=== PATIENT | male | born 1955 | race Caucasian/White ===

== ENCOUNTER 2018-09-05 20:50 | Inpatient (IN) | payer MEDICARE, OTHER ==
--- NOTE | 2018-09-05 21:06 | ED Physician Chart ---
ED Chief Complaint/HPI - Patient Information Date Seen:: 09/05/18 Time Seen:: 20:45 Chief Complaint:: Agitation History of Present Illness:: onset x 2 days of agitation and confusion; no report of trauma SIs, LOC, H/As, S /T, neck pain, cough, C/P, SOB, Abd. Pain, A/N/V/D/C, fever, chills, or urinary s/s Allergies:: Allergies Allergy/AdvReac Type Severity Reaction Status Date / Time No Known Allergies Allergy Verified 09/05/18 20:54 Vitals:: Vital Signs - 8 hr 09/05/18 20:55 Temp 97.1 F HR 85 RR 16 BP 147/89 O2 Sat % 96 Historian:: Patient, EMS Review:: Nurse's Note Reviewed, Old Chart Reviewed, EMS run form Reviewed ED Review of Systems - Review of Systems General/Constitutional: No fever, No chills, No weight loss, No weakness, No diaphoresis, No edema, No loss of appetite Skin: No skin lesions, No rash, No bruising Head: No headache, No light-headedness Eyes: No loss of vision, No pain, No diplopia ENT: No earache, No nasal drainage, No sore throat, No tinnitus Neck: No neck pain, No swelling, No thyromegaly, No stiffness, No mass noted Cardio Vascular: No chest pain, No palpitations, No PND, No orthopnea, No edema Pulmonary: No SOB, No cough, No sputum, No wheezing GI: No nausea, No vomiting, No diarrhea, No pain, No melena, No hematochezia, No constipation, No hematemesis G/U: No dysuria, No frequency, No hematuria, No nacturia Musculoskeletal: No bone or joint pain, No back pain, No muscle pain Endocrine: No polyuria, No polydipsia Psychiatric: Prior psych history, Depression, Anxiety, No suicidal ideation, No homicidal ideation, No auditory hallucination, No visual hallucination Hematopoietic: No bruising, No lymphadenopathy Allergic/Immuno: No urticaria, No angioedema Neurological: No syncope, No focal symptoms, No weakness, No paresthesia, No headache, No seizure, No dizziness, Confusion, No vertigo ED Past Medical History - Past Medical History Obtainable: Yes Past Medical History: HTN, Dyslipidemia, Dementia Family History: HTN Social History: Non Smoker, No Alcohol, No Drug Use, Single, Care Facility Surgical History: None Psychiatricy History: Depression, Dementia Medication: Reviewed Family Medical History - Family Member Mother History Unknown: Yes ED Physical Exam - Physical Examination General/Constitutional: Awake, Well-developed, well-nourished, Alert, No distress, GCS 15, Non-toxic appearing, Ambulatory Head: Atraumatic Eyes: Lids, conjuctiva normal, PERRL, EOMI Skin: Nl inspection, No rash, No skin lesions, No ecchymosis, Well hydrated, No lymphadenopathy ENMT: External ears, nose nl, TM canals nl, Nasal exam nl, Lips, teeth, gums nl , Oropharynx nl, Tonsils nl Neck: Nontender, Full ROM w/o pain, No JVD, No nuchal rigidity, No bruit, No mass, No stridor Respiratory: Nl effort/Exclusion, Clear to Auscultation, No Wheeze/Rhonchi/Rales Cardio Vascular: RRR, No murmur, gallop, rubs, NL S1 S2, Carotid/Femoral/Distal pulses equal bilaterally GI: No tenderness/rebounding/guarding, No organomegaly, No hernia, Normal BS's, Nondistended, No mass/bruits, No McBurney tenderness : No CVA tenderness Extremities: No tenderness or effusion, Full ROM, normal strength in all extremities, No edema, Normal digits & nails Neuro/Psych: Alert/oriented, DTR's symmetric, Normal sensory exam, Normal motor strength, Judgement/insight normal, Mood normal, Normal gait, No focal deficits Other Neuro/Psych comments:: + Psychomotor Agitation; no SIs; Mood/Affect: Labile Misc: Normal back, No paraspinal tenderness ED Labs/Radiology/EKG Results - Lab Results Comments:: Reviewed - EKG Interpretations EKG Time:: 20:57 Rate & Rhythm: 79; NSR Comments:: non-specific st-t changes ED Septic Shock - . Is Septic Shock (SBP<90, OR Lactate>4 mmol\L) present?: No - <6hrs of presentation: Vital Signs: Vital Signs - 8 hr 09/05/18 20:55 Temp 97.1 F HR 85 RR 16 BP 147/89 O2 Sat % 96 ED Reassessment (Disposition) - Reassessment Reassessment Condition:: Improved - Diagnosis Diagnosis:: Agitation; Confusion; AMS; Medical Clearance; HTN; Dementia; Bipolar Disorder - Aftercare/Follow up Instructions Aftercare/Follow-Up Instructions:: Counseled pt regarding lab results/diagnosis & need follow up, Counseled pt & family regarding lab results/diagnosis & need follow up - Patient Disposition Discharge/Transfer:: Acute Care w/in this hosp Admitted to:: [facility] Condition at Disposition:: Stable, Improved
[2018-09-05 21:15] LABS: % BASOPHILS 0.5 % (0.0-2.0); % EOSINOPHILS 0.6 % (0.0-5.0); % LYMPHOCYTES 38.6 % (20.0-50.0); % MONOCYTES 6.1 % (2.0-10.0); % NEUTROPHILS 54.2 % (40.0-80.0); BASOPHILE ABSOLUTE 0.1 Th/cumm (0-0.2); EOSINOPHILE ABSOLUTE 0.1 Th/cmm (0.1-0.4); HEMOGLOBIN 16.1 gm/dL (12-16); MEAN CELL VOLUME 98.9 fl (80-99); MEAN CORPUSCULAR HEMOGLOBIN 33.2 pg (26.0-30.0); MEAN CORPUSCULAR HGB CONC 33.6 pg (28.0-36.0); MEAN PLATELET VOLUME 8.5 fl; MONOCYTE ABSOLUTE 0.6 Th/cmm (0.3-1.0); NEUTROPHILE ABSOLUTE 5.5 Th/cmm (1.8-8.0); PLATELET COUNT 162 Th/cmm (150-400); RED BLOOD COUNT 4.85 Mil/cmm (4.30-5.70); RED CELL DISTRIBUTION WIDTH 12.1 % (11.5-20.0); WHITE BLOOD COUNT 10.3 Th/cmm (4.8-10.8)
[2018-09-05 21:31] LABS: ALB/GLOB RATIO 1.6 (1.0-1.8); ALKALINE PHOSPHATASE 68 U/L (34-104); ANION GAP 11.5 (7.0-16.0); BILIRUBIN,TOTAL 0.5 mg/dL (0.3-1.0); BUN - UREA NITROGEN 17 mg/dL (7-25); CALCIUM SERUM 9.9 mg/dL (8.6-10.3); CARBON DIOXIDE 27.6 mEq/L (21.0-31.0); CHLORIDE 108 mEq/L (98-107); CREATININE - SERUM 0.8 mg/dL (0.7-1.3); GFR AFRICAN-AMERICAN > 60.0 ml/min (>90); GFR NON AFRICAN-AMERICAN > 60.0 ml/min; GLUCOSE 91 mg/dL (70-105); POTASSIUM SERUM 4.1 mEq/L (3.5-5.1); SALICYLATES (ASPIRIN) < 25.0 mg/L (30.0-100.0); SGOT 13 U/L (13-39); SGPT/ALT 12 U/L (7-52); SODIUM SERUM 143 mEq/L (136-145); TOTAL PROTEIN,SERUM 6.5 gm/dL (6.0-8.3)
[2018-09-05 22:17] LABS: ACETAMINOPHEN < 10.0 ug/mL (10.0-30.0)
[2018-09-05 22:38] VITALS: BP 133/92
[2018-09-05] MEDS ORDERED: DIPHENHYDRAMINE HCL 50 MG PO PRN (23:13)
[2018-09-05] MEDS ORDERED: Non-Formulary Item 1 EA (Albuterol Sulfate [Proair Respiclick] 2 PUFF) IH PRN (23:13)
[2018-09-06 01:06] LABS: CHOLESTEROL 128 mg/dL (<200); HDL -HIGH DENSITY LIPOPROTEIN 38 mg/dL (23-92); TRIGLYCERIDES 104 mg/dL (<150)
[2018-09-06] MEDS: Levothyroxine 0.05 Mg Tab PO SCH (06:41)
[2018-09-06] MEDS ORDERED: Albuterol Nebulizer 2.5mg/3mL HHN PRN (08:33)
[2018-09-06] MEDS: Aspirin 81mg Chewable Tab PO SCH (08:51)
[2018-09-06] MEDS: Benztropine 1 MG TAB PO SCH ×2 (08:51→17:17)
[2018-09-06] MEDS ORDERED: PRAVASTATIN SODIUM 10 MG PO SCH (09:00)
--- NOTE | 2018-09-06 21:02 | History & Physical ---
ADMIT DATE: 09/06/2018 COVERING FOR: Dr. Marks. CHIEF COMPLAINT: Agitation. HISTORY OF PRESENT ILLNESS: A 63-year-old male, who is a retirement resident, admitted to the Geropsych Unit due to a 3-day history of agitation and confusion. PAST MEDICAL HISTORY: Hypertension, dyslipidemia, dementia. SOCIAL HISTORY: The patient is a retirement resident, requiring 24-hour nursing care. SURGICAL HISTORY: None. ALLERGIES: No drug allergies. HOME MEDICATIONS: Please see medication list. REVIEW OF SYSTEMS: All systems reviewed and negative. PHYSICAL EXAMINATION: GENERAL: The patient is well developed, well nourished, no apparent distress. VITAL SIGNS: Temperature 98.7, heart rate 86, blood pressure 109/56, respirations 18, O2 95%. HEENT: Head is normocephalic, atraumatic. NECK: Supple. No mass. LUNGS: Clear bilaterally. HEART: Regular rhythm. ABDOMEN: Soft, nontender. ASSESSMENT: Agitation, hypertension, dyslipidemia, and dementia. PLAN: Fall precautions will be initiated. Monitor blood pressure closely. Continue retirement medications. We will continue to monitor this patient. JOB# [id number]
--- NOTE | 2018-09-06 21:09 | Psychiatric Evaluation ---
DATE OF SERVICE: 09/05/2018 HISTORY OF PRESENT ILLNESS: Staff was spoken to. The patient is interviewed. This is a 63-year-old male, resident of a [facility]. Information obtained by directly interviewing the patient as well as reviewing the admission papers. The patient has been brought here from the [facility] for his acute agitation and psychosis. The patient is admitted on a voluntary basis. Staff was spoken to. The patient is interviewed. Chart is reviewed. During the evaluation, the patient is reported to have been having a poor personal hygiene and body odor. The patient is reported to have not been compliant with the medication and the patient has been diagnosed to have schizophrenia, rule out schizoaffective disorder for almost over 10-20 years and he is stating that he has been in several different hospitals. At the time of the hospitalization, the patient's chart indicated that the patient is on 10 mg twice a day of the Haldol and also reported to have gotten Invega Trinza and the patient is also on Paxil. The patient during the evaluation is talking to self, not able to give a coherent information. The patient is also reported to have hypothyroidism, hypertension, diabetes mellitus, and hyperlipidemia. The patient is not presenting with any allergies to any medications. PAST PSYCHIATRIC HISTORY: Please refer to the above. MEDICAL HISTORY: Physical examination is requested to be done by Dr. Marks. SUBSTANCE ABUSE HISTORY: None. PHYSICAL OR SEXUAL ABUSE HISTORY: None. LEGAL PROBLEMS: None at this time. STRENGTH AND ASSETS: The patient is motivated. MENTAL STATUS EXAMINATION: The patient is a 63-year-old, looking older than his stated age, superficially cooperative. Eye contact is poor. Mood is noted to be irritable. Affect is constricted. Insight and judgment are noted to be still impaired. Impulse control is noted to be poor. Coping skills are also noted to be very poor. The patient is not able to contract for safety at this time. The patient is actively responding to internal stimuli. The patient at this time is not able to provide much of decent information. The patient is alert and aware that he is in the hospital. Attention span and concentration are noted to be very poor. Short and long-term memory seem to be fair. DIAGNOSTIC IMPRESSION: AXIS I: Schizophrenia, chronic paranoid type; rule out schizoaffective disorder. AXIS II: None. AXIS III: Hypertension, diabetes mellitus, hyperlipidemia and hypothyroidism. IMMEDIATE TREATMENT PLAN: The patient is going to be continued on the Haldol and the patient is going to be closely monitored. Once stabilized, the patient is going to be discharged to [facility] to be followed up on an outpatient basis. JOB# [id number]
[2018-09-07] MEDS: Levothyroxine 0.05 Mg Tab PO SCH (06:38)
[2018-09-07] MEDS: Benztropine 1 MG TAB PO SCH ×2 (09:19→18:15)
[2018-09-07] MEDS: Aspirin 81mg Chewable Tab PO SCH (09:19)
--- NOTE | 2018-09-07 11:46 | Progress Notes ---
DATE: 09/07/2018 PSYCHIATRIC PROGRESS NOTE PROGRESS ON THE UNIT: Staff was spoken to. The patient is interviewed. Mood is noted to be irritable. Affect is constricted. Insight and judgment noted to be still impaired. Impulse control is noted to be limited. The patient has been having difficult time to cope with the stress. Personal hygiene is noted to be very poor. The patient has taken with a great difficulty a shower but he is refusing to change the clothes. ASSESSMENT: The patient is still psychotic and is responding to internal stimuli. PLAN: To continue the patient with supportive therapy and followup. JOB# [id number]
--- NOTE | 2018-09-07 17:02 | Internal Medicine Prog Note ---
Internal Medicine Subjective - Subjective Patient seen and examined:: chart reviewed Patient is:: awake, agitated, confused Patient Complaints of:: congestion Per staff patient has:: no adverse event Internal Medicine Objective - Results Result Diagrams: 09/05/18 21:00 09/05/18 21:00 Recent Labs: Laboratory Last Values WBC 10.3 Th/cmm (4.8-10.8) 09/05/18 21:00 RBC 4.85 Mil/cmm (4.30-5.70) 09/05/18 21:00 Hgb 16.1 gm/dL (12-16) 09/05/18 21:00 Hct 48.0 % (41.0-60) 09/05/18 21:00 MCV 98.9 fl (80-99) 09/05/18 21:00 MCH 33.2 pg (26.0-30.0) H 09/05/18 21:00 MCHC Differential 33.6 pg (28.0-36.0) 09/05/18 21:00 RDW 12.1 % (11.5-20.0) 09/05/18 21:00 Plt Count 162 Th/cmm (150-400) 09/05/18 21:00 MPV 8.5 fl 09/05/18 21:00 Neutrophils % 54.2 % (40.0-80.0) 09/05/18 21:00 Lymphocytes % 38.6 % (20.0-50.0) 09/05/18 21:00 Monocytes % 6.1 % (2.0-10.0) 09/05/18 21:00 Eosinophils % 0.6 % (0.0-5.0) 09/05/18 21:00 Basophils % 0.5 % (0.0-2.0) 09/05/18 21:00 Sodium 143 mEq/L (136-145) 09/05/18 21:00 Potassium 4.1 mEq/L (3.5-5.1) 09/05/18 21:00 Chloride 108 mEq/L (98-107) H 09/05/18 21:00 Carbon Dioxide 27.6 mEq/L (21.0-31.0) 09/05/18 21:00 Anion Gap 11.5 (7.0-16.0) 09/05/18 21:00 BUN 17 mg/dL (7-25) 09/05/18 21:00 Creatinine 0.8 mg/dL (0.7-1.3) 09/05/18 21:00 Est GFR ( Amer) > 60.0 ml/min (>90) 09/05/18 21:00 Est GFR (Non-Af Amer) > 60.0 ml/min 09/05/18 21:00 BUN/Creatinine Ratio 21.3 09/05/18 21:00 Glucose 91 mg/dL (70-105) 09/05/18 21:00 Calcium 9.9 mg/dL (8.6-10.3) 09/05/18 21:00 Total Bilirubin 0.5 mg/dL (0.3-1.0) 09/05/18 21:00 AST 13 U/L (13-39) 09/05/18 21:00 ALT 12 U/L (7-52) 09/05/18 21:00 Alkaline Phosphatase 68 U/L (34-104) 09/05/18 21:00 Troponin I < 0.01 ng/mL (0.01-0.05) L 09/05/18 21:00 Total Protein 6.5 gm/dL (6.0-8.3) 09/05/18 21:00 Albumin 4.0 gm/dL (4.2-5.5) L 09/05/18 21:00 Globulin 2.5 gm/dL 09/05/18 21:00 Albumin/Globulin Ratio 1.6 (1.0-1.8) 09/05/18 21:00 Triglycerides 104 mg/dL (<150) 09/05/18 21:00 Cholesterol 128 mg/dL (<200) 09/05/18 21:00 LDL Cholesterol Direct 84 mg/dL (75-193) 09/05/18 21:00 HDL Cholesterol 38 mg/dL (23-92) 09/05/18 21:00 TSH 4.80 uIU/ml (0.34-5.60) 09/05/18 21:00 Salicylates < 25.0 mg/L (30.0-100.0) L 09/05/18 21:00 Acetaminophen < 10.0 ug/mL (10.0-30.0) L 09/05/18 21:00 Ethyl Alcohol < 10 mg/dL (0-10) 09/05/18 21:00 RPR NONREACTIVE (NONREACTIVE) 09/05/18 21:00 - Physical Exam Vitals and I&O: Vital Signs Temp 98.2 F 09/07/18 14:45 Pulse 104 09/07/18 14:45 Resp 20 09/07/18 14:45 BP 124/77 09/07/18 14:45 Pulse Ox 96 09/07/18 14:45 Active Medications: Current Medications Acetaminophen (Tylenol) 650 mg PO Q4HR PRN PRN Reason: Mild Pain / Temp above 100 Stop: 11/04/18 22:37 Albuterol Sulfate (Albuterol 2.5mg/3ml Neb Ud) 2.5 mg HHN Q6H PRN PRN Reason: Shortness of Breath Stop: 11/05/18 08:32 Aspirin (Aspirin Chewable) 81 mg PO DAILY [facility] Stop: 11/05/18 08:59 Last Admin: 09/07/18 09:19 Dose: 81 mg Benztropine Mesylate (Cogentin) 1 mg PO BID [facility] Stop: 11/05/18 08:59 Last Admin: 09/07/18 09:19 Dose: 1 mg Diphenhydramine HCl (Benadryl) 50 mg PO HS PRN PRN Reason: SLEEP Stop: 11/05/18 08:33 Divalproex Sodium (Depakote Dr) 500 mg PO DAILY [facility]; Protocol Stop: 11/05/18 08:59 Last Admin: 09/07/18 09:18 Dose: 500 mg Haloperidol (Haldol) 5 mg PO BID [facility]; Protocol Stop: 11/05/18 16:59 Last Admin: 09/07/18 09:19 Dose: 5 mg Levothyroxine Sodium (Synthroid) 0.05 mg PO QDAC NEL Stop: 11/05/18 07:29 Last Admin: 09/07/18 06:38 Dose: 0.05 mg Lisinopril (Zestril) 5 mg PO DAILY NEL Stop: 11/05/18 08:59 Last Admin: 09/07/18 09:19 Dose: 5 mg Lorazepam (Ativan) 0.5 mg PO Q4HR PRN; Protocol PRN Reason: Anxiety Stop: 10/05/18 22:37 Metformin HCl (Glucophage) 500 mg PO BID [facility] Stop: 11/05/18 08:59 Last Admin: 09/07/18 09:19 Dose: 500 mg Simvastatin (Zocor) 10 mg PO HS NEL Stop: 11/05/18 20:59 Last Admin: 09/06/18 21:45 Dose: 10 mg Zolpidem Tartrate (Ambien) 5 mg PO HS PRN PRN Reason: Insomnia Stop: 11/04/18 22:37 General: demented HEENT: NC/AT Neck: Supple, No JVD Lungs: CTAB Cardiovascular: RRR, Normal S1, Normal S2 Abdomen: soft Extremities: clear Neurological: no change Internal Medicine Assmt/Plan - Assessment Assessment: agitation htn dyslipidemia dementia - Plan Plan: as per psych will monitor
[2018-09-08] MEDS: Levothyroxine 0.05 Mg Tab PO SCH (06:31)
[2018-09-08] MEDS: Aspirin 81mg Chewable Tab PO SCH (08:36)
[2018-09-08] MEDS: Benztropine 1 MG TAB PO SCH ×2 (08:36→17:00)
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
--- NOTE | 2018-09-08 18:37 | Progress Notes ---
DATE: 09/08/2018 SUBJECTIVE: The patient was seen in dining area. The patient appears to be guarded, easily gets frustrated and irritable with episodes of behavioral outbursts. Otherwise, the patient appears to be in no acute distress. OBJECTIVE: VITAL SIGNS: Temperature 97.3, heart rate 72, blood pressure 109/64, heart rate 18, and 93% on room air. HEENT: Head is atraumatic and normocephalic. Eyes: Bilateral conjunctivae are clear. Bilateral pupils are equally round and reactive. NECK: Supple. No JVD. CARDIOVASCULAR: S1 and S2 without murmur. PULMONARY: Clear to auscultation. GASTROINTESTINAL: Soft and nontender without guarding. Positive bowel sounds. MUSCULOSKELETAL: No clubbing. No cyanosis noted. ASSESSMENT: 1. Paranoid schizophrenia. 2. Dementia. 3. Hypertension. 4. Hyperlipidemia. PLAN: We will keep the patient in inpatient psychiatric unit. We will follow up with a psychiatrist to monitor the patient's condition and behavior. Treatment plans were discussed with the patient's nurse. Treatment plans discussed with Dr. Marks. JOB# [id number]
--- NOTE | 2018-09-09 01:45 | Progress Notes ---
DATE: 09/08/2018 PSYCHIATRIC PROGRESS NOTE SUBJECTIVE: Staff was spoken to. The patient is interviewed. Mood is noted to be dysphoric. He continues to be very paranoid, isolative, and withdrawn. Personal hygiene continues to be extremely poor. The patient is reluctant to change his clothes. The patient is still responding to internal stimuli and so far the patient has been able to tolerate the medication. The patient is currently on 5 mg twice a day haloperidol and Depakote 500 mg daily and has been able to tolerate the medication. ASSESSMENT: The patient is still psychotic. PLAN: To continue the patient with the current medications and followup. JOB# [id number]
[2018-09-09] MEDS: Levothyroxine 0.05 Mg Tab PO SCH (06:42)
[2018-09-09] MEDS: Aspirin 81mg Chewable Tab PO SCH (08:28)
[2018-09-09] MEDS: Benztropine 1 MG TAB PO SCH ×2 (08:28→16:18)
--- NOTE | 2018-09-09 13:02 | Internal Medicine Prog Note ---
Internal Medicine Subjective - Subjective Patient is:: awake, agitated, confused, other (still psychotic) Patient Complaints of:: congestion Per staff patient has:: no adverse event Internal Medicine Objective - Results Result Diagrams: 09/05/18 21:00 09/05/18 21:00 Recent Labs: Laboratory Last Values WBC 10.3 Th/cmm (4.8-10.8) 09/05/18 21:00 RBC 4.85 Mil/cmm (4.30-5.70) 09/05/18 21:00 Hgb 16.1 gm/dL (12-16) 09/05/18 21:00 Hct 48.0 % (41.0-60) 09/05/18 21:00 MCV 98.9 fl (80-99) 09/05/18 21:00 MCH 33.2 pg (26.0-30.0) H 09/05/18 21:00 MCHC Differential 33.6 pg (28.0-36.0) 09/05/18 21:00 RDW 12.1 % (11.5-20.0) 09/05/18 21:00 Plt Count 162 Th/cmm (150-400) 09/05/18 21:00 MPV 8.5 fl 09/05/18 21:00 Neutrophils % 54.2 % (40.0-80.0) 09/05/18 21:00 Lymphocytes % 38.6 % (20.0-50.0) 09/05/18 21:00 Monocytes % 6.1 % (2.0-10.0) 09/05/18 21:00 Eosinophils % 0.6 % (0.0-5.0) 09/05/18 21:00 Basophils % 0.5 % (0.0-2.0) 09/05/18 21:00 Sodium 143 mEq/L (136-145) 09/05/18 21:00 Potassium 4.1 mEq/L (3.5-5.1) 09/05/18 21:00 Chloride 108 mEq/L (98-107) H 09/05/18 21:00 Carbon Dioxide 27.6 mEq/L (21.0-31.0) 09/05/18 21:00 Anion Gap 11.5 (7.0-16.0) 09/05/18 21:00 BUN 17 mg/dL (7-25) 09/05/18 21:00 Creatinine 0.8 mg/dL (0.7-1.3) 09/05/18 21:00 Est GFR ( Amer) > 60.0 ml/min (>90) 09/05/18 21:00 Est GFR (Non-Af Amer) > 60.0 ml/min 09/05/18 21:00 BUN/Creatinine Ratio 21.3 09/05/18 21:00 Glucose 91 mg/dL (70-105) 09/05/18 21:00 Calcium 9.9 mg/dL (8.6-10.3) 09/05/18 21:00 Total Bilirubin 0.5 mg/dL (0.3-1.0) 09/05/18 21:00 AST 13 U/L (13-39) 09/05/18 21:00 ALT 12 U/L (7-52) 09/05/18 21:00 Alkaline Phosphatase 68 U/L (34-104) 09/05/18 21:00 Troponin I < 0.01 ng/mL (0.01-0.05) L 09/05/18 21:00 Total Protein 6.5 gm/dL (6.0-8.3) 09/05/18 21:00 Albumin 4.0 gm/dL (4.2-5.5) L 09/05/18 21:00 Globulin 2.5 gm/dL 09/05/18 21:00 Albumin/Globulin Ratio 1.6 (1.0-1.8) 09/05/18 21:00 Triglycerides 104 mg/dL (<150) 09/05/18 21:00 Cholesterol 128 mg/dL (<200) 09/05/18 21:00 LDL Cholesterol Direct 84 mg/dL (75-193) 09/05/18 21:00 HDL Cholesterol 38 mg/dL (23-92) 09/05/18 21:00 TSH 4.80 uIU/ml (0.34-5.60) 09/05/18 21:00 Salicylates < 25.0 mg/L (30.0-100.0) L 09/05/18 21:00 Acetaminophen < 10.0 ug/mL (10.0-30.0) L 09/05/18 21:00 Ethyl Alcohol < 10 mg/dL (0-10) 09/05/18 21:00 RPR NONREACTIVE (NONREACTIVE) 09/05/18 21:00 - Physical Exam Vitals and I&O: Vital Signs Temp 97.9 F 09/09/18 05:10 Pulse 80 09/09/18 08:29 Resp 18 09/09/18 05:10 BP 110/79 09/09/18 08:29 Pulse Ox 97 09/09/18 05:10 Intake & Output 09/08/18 09/09/18 09/09/18 18:59 06:59 18:59 Intake Total 480 Balance 480 Intake: Oral 480 Other: # Voids 2 Active Medications: Current Medications Acetaminophen (Tylenol) 650 mg PO Q4HR PRN PRN Reason: Mild Pain / Temp above 100 Stop: 11/04/18 22:37 Albuterol Sulfate (Albuterol 2.5mg/3ml Neb Ud) 2.5 mg HHN Q6H PRN PRN Reason: Shortness of Breath Stop: 11/05/18 08:32 Aspirin (Aspirin Chewable) 81 mg PO DAILY [facility] Stop: 11/05/18 08:59 Last Admin: 09/09/18 08:28 Dose: 81 mg Benztropine Mesylate (Cogentin) 1 mg PO BID NEL Stop: 11/05/18 08:59 Last Admin: 09/09/18 08:28 Dose: 1 mg Diphenhydramine HCl (Benadryl) 50 mg PO HS PRN PRN Reason: SLEEP Stop: 11/05/18 08:33 Divalproex Sodium (Depakote Dr) 500 mg PO DAILY NEL; Protocol Stop: 11/05/18 08:59 Last Admin: 09/09/18 08:29 Dose: 500 mg Haloperidol (Haldol) 5 mg PO BID NEL; Protocol Stop: 11/05/18 16:59 Last Admin: 09/09/18 08:28 Dose: 5 mg Levothyroxine Sodium (Synthroid) 0.05 mg PO QDAC NEL Stop: 11/05/18 07:29 Last Admin: 09/09/18 06:42 Dose: 0.05 mg Lisinopril (Zestril) 5 mg PO DAILY NEL Stop: 11/05/18 08:59 Last Admin: 09/09/18 08:29 Dose: 5 mg Lorazepam (Ativan) 0.5 mg PO Q4HR PRN; Protocol PRN Reason: Anxiety Stop: 10/05/18 22:37 Last Admin: 09/08/18 20:54 Dose: 0.5 mg Metformin HCl (Glucophage) 500 mg PO BID NEL Stop: 11/05/18 08:59 Last Admin: 09/09/18 08:28 Dose: 500 mg Simvastatin (Zocor) 10 mg PO HS NEL Stop: 11/05/18 20:59 Last Admin: 09/08/18 20:54 Dose: 10 mg Zolpidem Tartrate (Ambien) 5 mg PO HS PRN PRN Reason: Insomnia Stop: 11/04/18 22:37 General: demented HEENT: NC/AT Neck: Supple, No JVD Lungs: CTAB Cardiovascular: RRR, Normal S1, Normal S2 Abdomen: soft Extremities: clear Neurological: no change Internal Medicine Assmt/Plan - Assessment Assessment: agitation htn dyslipidemia dementia - Plan Plan: as per psych will monitor Nutritional Asmnt/Malnutr-PDOC - Dietary Evaluation Malnutrition Findings (Please click <Entered> for more info): Nutritional Asmnt/Malnutrition Start: 09/08/18 10: 04 Text: Status: Complete Freq: Protocol: Document 09/08/18 10:04 QING (Rec: 09/08/18 10:15 QING HAY- [email or web address]) Nutritional Asmnt/Malnutrition Patient General Information Nutritional Screening Moderate Risk Diagnosis Psychosis Pertinent Medical Hx/Surgical Hx HTN, dyslipidemia, dementia Subjective Information Patient was admitted from a care home. Patient in bed at time of visit. Per nursing, patient is tolerating diet eating 75-100% of meals. Current Diet Order/ Nutrition Support 60 gm [facility] Patient / S.O Not Indicated Pertinent Medications synthroid, Metformin Pertinent Labs WNL Nutritional Hx/Data Height 1.83 m Height (Calculated Centimeters) 182.9 Current Weight (lbs) 75.296 kg Weight (Calculated Kilograms) 75.3 Weight (Calculated Grams) 45974.3 [place] Body Weight 178 % [place] Body Weight 93 Body Mass Index (BMI) 22.5 Recent Weight Change No Weight Status Approriate GI Symptoms GI Symptoms None Last BM none noted in EMR since admission Difficult in: None Food Allergies No Cultural/Ethnic/Sikh Belief none indicated Usual diet at home unknown Skin Integrity/Comment: Alen 21, intact Current %PO Fair (50-74%) Estimated Nutritional Goals BEE in Kcals: Using Current wt Calories/Kcals/Kg 25-30 kcal/kg using 75.4 kg Kcals Calculated 4586-4193 kcal/day Protein: Using Current wt Protein g/k.8-1 gm/kg Protein Calculated ~60-75 gm/day Fluid: ml 4084-8944 ml/day Nutritional Problem 1. Problem Problem No nutrition diagnosis at this time Intervention/Recommendation Comments Continue 60 gm CCHO diet as tolerated by patient. Expected Outcomes/Goals Expected Outcomes/Goals Oral intake >75% of meals, weight stable, nutrition related labs WNL
--- NOTE | 2018-09-09 21:17 | Progress Notes ---
DATE: 09/09/2018 PSYCHIATRIC PROGRESS NOTE SUBJECTIVE: Staff was spoken to. The patient is interviewed. Mood is noted to be irritable. Affect is constricted. The patient's insight and judgment at this time are still impaired. Impulse control is noted to be limited. The patient is currently on the valproic acid and haloperidol, has been able to tolerate the medications. No side effects to the medications are noted. The patient is denying any command hallucinations, but the patient has paranoia. The patient's blood work has been reviewed and no major interventions were needed. ASSESSMENT: The patient is still psychotic. PLAN: To continue the patient with supportive therapy and followup. JOB# [id number]
[2018-09-10] MEDS: Levothyroxine 0.05 Mg Tab PO SCH (06:37)
[2018-09-10] MEDS: Benztropine 1 MG TAB PO SCH ×2 (08:23→16:22)
[2018-09-10] MEDS: Aspirin 81mg Chewable Tab PO SCH (08:24)
--- NOTE | 2018-09-10 15:22 | Internal Medicine Prog Note ---
Internal Medicine Subjective - Subjective Service Date: 09/10/18 Patient is:: awake, verbal, interactive, talking, agitated, confused, other ( still psychotic, very paranoid and denies hallucinations, affect is constricted ) Patient Complaints of:: congestion Per staff patient has:: no adverse event, combative, confused, tolerating meds Internal Medicine Objective - Results Result Diagrams: 09/05/18 21:00 09/05/18 21:00 Recent Labs: Laboratory Last Values WBC 10.3 Th/cmm (4.8-10.8) 09/05/18 21:00 RBC 4.85 Mil/cmm (4.30-5.70) 09/05/18 21:00 Hgb 16.1 gm/dL (12-16) 09/05/18 21:00 Hct 48.0 % (41.0-60) 09/05/18 21:00 MCV 98.9 fl (80-99) 09/05/18 21:00 MCH 33.2 pg (26.0-30.0) H 09/05/18 21:00 MCHC Differential 33.6 pg (28.0-36.0) 09/05/18 21:00 RDW 12.1 % (11.5-20.0) 09/05/18 21:00 Plt Count 162 Th/cmm (150-400) 09/05/18 21:00 MPV 8.5 fl 09/05/18 21:00 Neutrophils % 54.2 % (40.0-80.0) 09/05/18 21:00 Lymphocytes % 38.6 % (20.0-50.0) 09/05/18 21:00 Monocytes % 6.1 % (2.0-10.0) 09/05/18 21:00 Eosinophils % 0.6 % (0.0-5.0) 09/05/18 21:00 Basophils % 0.5 % (0.0-2.0) 09/05/18 21:00 Sodium 143 mEq/L (136-145) 09/05/18 21:00 Potassium 4.1 mEq/L (3.5-5.1) 09/05/18 21:00 Chloride 108 mEq/L (98-107) H 09/05/18 21:00 Carbon Dioxide 27.6 mEq/L (21.0-31.0) 09/05/18 21:00 Anion Gap 11.5 (7.0-16.0) 09/05/18 21:00 BUN 17 mg/dL (7-25) 09/05/18 21:00 Creatinine 0.8 mg/dL (0.7-1.3) 09/05/18 21:00 Est GFR ( Amer) > 60.0 ml/min (>90) 09/05/18 21:00 Est GFR (Non-Af Amer) > 60.0 ml/min 09/05/18 21:00 BUN/Creatinine Ratio 21.3 09/05/18 21:00 Glucose 91 mg/dL (70-105) 09/05/18 21:00 Calcium 9.9 mg/dL (8.6-10.3) 09/05/18 21:00 Total Bilirubin 0.5 mg/dL (0.3-1.0) 09/05/18 21:00 AST 13 U/L (13-39) 09/05/18 21:00 ALT 12 U/L (7-52) 09/05/18 21:00 Alkaline Phosphatase 68 U/L (34-104) 09/05/18 21:00 Troponin I < 0.01 ng/mL (0.01-0.05) L 09/05/18 21:00 Total Protein 6.5 gm/dL (6.0-8.3) 09/05/18 21:00 Albumin 4.0 gm/dL (4.2-5.5) L 09/05/18 21:00 Globulin 2.5 gm/dL 09/05/18 21:00 Albumin/Globulin Ratio 1.6 (1.0-1.8) 09/05/18 21:00 Triglycerides 104 mg/dL (<150) 09/05/18 21:00 Cholesterol 128 mg/dL (<200) 09/05/18 21:00 LDL Cholesterol Direct 84 mg/dL (75-193) 09/05/18 21:00 HDL Cholesterol 38 mg/dL (23-92) 09/05/18 21:00 TSH 4.80 uIU/ml (0.34-5.60) 09/05/18 21:00 Salicylates < 25.0 mg/L (30.0-100.0) L 09/05/18 21:00 Acetaminophen < 10.0 ug/mL (10.0-30.0) L 09/05/18 21:00 Ethyl Alcohol < 10 mg/dL (0-10) 09/05/18 21:00 RPR NONREACTIVE (NONREACTIVE) 09/05/18 21:00 - Physical Exam Vitals and I&O: Vital Signs Temp 98.2 F 09/10/18 08:00 Pulse 85 09/10/18 08:24 Resp 20 09/10/18 08:00 BP 110/71 09/10/18 08:24 Pulse Ox 92 09/10/18 08:00 Intake & Output 09/09/18 09/10/18 09/10/18 18:59 06:59 18:59 Intake Total 480 Balance 480 Intake: Oral 480 Other: # Voids 2 # Bowel Movements 0 Active Medications: Current Medications Acetaminophen (Tylenol) 650 mg PO Q4HR PRN PRN Reason: Mild Pain / Temp above 100 Stop: 11/04/18 22:37 Albuterol Sulfate (Albuterol 2.5mg/3ml Neb Ud) 2.5 mg HHN Q6H PRN PRN Reason: Shortness of Breath Stop: 11/05/18 08:32 Aspirin (Aspirin Chewable) 81 mg PO DAILY [facility] Stop: 11/05/18 08:59 Last Admin: 09/10/18 08:24 Dose: 81 mg Benztropine Mesylate (Cogentin) 1 mg PO BID NEL Stop: 11/05/18 08:59 Last Admin: 09/10/18 08:23 Dose: 1 mg Diphenhydramine HCl (Benadryl) 50 mg PO HS PRN PRN Reason: SLEEP Stop: 11/05/18 08:33 Divalproex Sodium (Depakote Dr) 500 mg PO DAILY [facility]; Protocol Stop: 11/05/18 08:59 Last Admin: 09/10/18 08:24 Dose: 500 mg Haloperidol (Haldol) 5 mg PO BID NEL; Protocol Stop: 11/05/18 16:59 Last Admin: 09/10/18 08:24 Dose: 5 mg Levothyroxine Sodium (Synthroid) 0.05 mg PO QDAC NEL Stop: 11/05/18 07:29 Last Admin: 09/10/18 06:37 Dose: 0.05 mg Lisinopril (Zestril) 5 mg PO DAILY NEL Stop: 11/05/18 08:59 Last Admin: 09/10/18 08:24 Dose: 5 mg Lorazepam (Ativan) 0.5 mg PO Q4HR PRN; Protocol PRN Reason: Anxiety Stop: 10/05/18 22:37 Last Admin: 09/09/18 20:06 Dose: 0.5 mg Metformin HCl (Glucophage) 500 mg PO BID NEL Stop: 11/05/18 08:59 Last Admin: 09/10/18 08:23 Dose: 500 mg Simvastatin (Zocor) 10 mg PO HS NEL Stop: 11/05/18 20:59 Last Admin: 09/09/18 20:06 Dose: 10 mg Zolpidem Tartrate (Ambien) 5 mg PO HS PRN PRN Reason: Insomnia Stop: 11/04/18 22:37 Last Admin: 09/09/18 22:09 Dose: 5 mg General: demented HEENT: NC/AT Neck: Supple, No JVD Lungs: CTAB Cardiovascular: RRR, Normal S1, Normal S2 Abdomen: soft Extremities: clear Neurological: no change Internal Medicine Assmt/Plan - Assessment Assessment: psychotic/paranoia agitation htn dyslipidemia dementia - Plan Plan: as per psych will monitor closely continue supportive therapy and will follow up. Nutritional Asmnt/Malnutr-PDOC - Dietary Evaluation Malnutrition Findings (Please click <Entered> for more info): Nutritional Asmnt/Malnutrition Start: 09/08/18 10: 04 Text: Status: Complete Freq: Protocol: Document 09/08/18 10:04 QING (Rec: 09/08/18 10:15 QING HAY- [email or web address]) Nutritional Asmnt/Malnutrition Patient General Information Nutritional Screening Moderate Risk Diagnosis Psychosis Pertinent Medical Hx/Surgical Hx HTN, dyslipidemia, dementia Subjective Information Patient was admitted from a correction. Patient in bed at time of visit. Per nursing, patient is tolerating diet eating 75-100% of meals. Current Diet Order/ Nutrition Support 60 gm CCHO Patient / S.O Not Indicated Pertinent Medications synthroid, Metformin Pertinent Labs WNL Nutritional Hx/Data Height 1.83 m Height (Calculated Centimeters) 182.9 Current Weight (lbs) 75.296 kg Weight (Calculated Kilograms) 75.3 Weight (Calculated Grams) 36371.3 [place] Body Weight 178 % [place] Body Weight 93 Body Mass Index (BMI) 22.5 Recent Weight Change No Weight Status Approriate GI Symptoms GI Symptoms None Last BM none noted in EMR since admission Difficult in: None Food Allergies No Cultural/Ethnic/Episcopalian Belief none indicated Usual diet at home unknown Skin Integrity/Comment: Alen 21, intact Current %PO Fair (50-74%) Estimated Nutritional Goals BEE in Kcals: Using Current wt Calories/Kcals/Kg 25-30 kcal/kg using 75.4 kg Kcals Calculated 8561-9785 kcal/day Protein: Using Current wt Protein g/k.8-1 gm/kg Protein Calculated ~60-75 gm/day Fluid: ml 3136-8959 ml/day Nutritional Problem 1. Problem Problem No nutrition diagnosis at this time Intervention/Recommendation Comments Continue 60 gm CCHO diet as tolerated by patient. Expected Outcomes/Goals Expected Outcomes/Goals Oral intake >75% of meals, weight stable, nutrition related labs WNL
--- NOTE | 2018-09-10 23:22 | Progress Notes ---
DATE: 09/10/2018 PSYCHIATRIC PROGRESS NOTE SUBJECTIVE: Staff was spoken to. The patient is interviewed. Mood is noted to be irritable. Affect is constricted. He continues to be very paranoid. Coping skills are noted to be very poor. No side effects to the medications are noted. The patient has very limited participation in the group. The patient is currently on Depakote and the patient is also getting Haldol. No side effects to the medications are noted. ASSESSMENT: The patient is still psychotic. PLAN: To continue the patient with supportive therapy and follow up. JOB# [id number]
[2018-09-11] MEDS: Levothyroxine 0.05 Mg Tab PO SCH (06:37)
[2018-09-11] MEDS: Aspirin 81mg Chewable Tab PO SCH (08:26)
[2018-09-11] MEDS: Benztropine 1 MG TAB PO SCH ×2 (08:26→17:12)
--- NOTE | 2018-09-11 13:49 | Internal Medicine Prog Note ---
Internal Medicine Subjective - Subjective Service Date: 09/11/18 Patient is:: awake, verbal, interactive, talking, agitated, confused, other ( still psychotic, very paranoid and denies hallucinations, affect is constricted ) Patient Complaints of:: congestion Per staff patient has:: no adverse event, combative, confused, tolerating meds Internal Medicine Objective - Results Result Diagrams: 09/05/18 21:00 09/05/18 21:00 Recent Labs: Laboratory Last Values WBC 10.3 Th/cmm (4.8-10.8) 09/05/18 21:00 RBC 4.85 Mil/cmm (4.30-5.70) 09/05/18 21:00 Hgb 16.1 gm/dL (12-16) 09/05/18 21:00 Hct 48.0 % (41.0-60) 09/05/18 21:00 MCV 98.9 fl (80-99) 09/05/18 21:00 MCH 33.2 pg (26.0-30.0) H 09/05/18 21:00 MCHC Differential 33.6 pg (28.0-36.0) 09/05/18 21:00 RDW 12.1 % (11.5-20.0) 09/05/18 21:00 Plt Count 162 Th/cmm (150-400) 09/05/18 21:00 MPV 8.5 fl 09/05/18 21:00 Neutrophils % 54.2 % (40.0-80.0) 09/05/18 21:00 Lymphocytes % 38.6 % (20.0-50.0) 09/05/18 21:00 Monocytes % 6.1 % (2.0-10.0) 09/05/18 21:00 Eosinophils % 0.6 % (0.0-5.0) 09/05/18 21:00 Basophils % 0.5 % (0.0-2.0) 09/05/18 21:00 Sodium 143 mEq/L (136-145) 09/05/18 21:00 Potassium 4.1 mEq/L (3.5-5.1) 09/05/18 21:00 Chloride 108 mEq/L (98-107) H 09/05/18 21:00 Carbon Dioxide 27.6 mEq/L (21.0-31.0) 09/05/18 21:00 Anion Gap 11.5 (7.0-16.0) 09/05/18 21:00 BUN 17 mg/dL (7-25) 09/05/18 21:00 Creatinine 0.8 mg/dL (0.7-1.3) 09/05/18 21:00 Est GFR ( Amer) > 60.0 ml/min (>90) 09/05/18 21:00 Est GFR (Non-Af Amer) > 60.0 ml/min 09/05/18 21:00 BUN/Creatinine Ratio 21.3 09/05/18 21:00 Glucose 91 mg/dL (70-105) 09/05/18 21:00 Calcium 9.9 mg/dL (8.6-10.3) 09/05/18 21:00 Total Bilirubin 0.5 mg/dL (0.3-1.0) 09/05/18 21:00 AST 13 U/L (13-39) 09/05/18 21:00 ALT 12 U/L (7-52) 09/05/18 21:00 Alkaline Phosphatase 68 U/L (34-104) 09/05/18 21:00 Troponin I < 0.01 ng/mL (0.01-0.05) L 09/05/18 21:00 Total Protein 6.5 gm/dL (6.0-8.3) 09/05/18 21:00 Albumin 4.0 gm/dL (4.2-5.5) L 09/05/18 21:00 Globulin 2.5 gm/dL 09/05/18 21:00 Albumin/Globulin Ratio 1.6 (1.0-1.8) 09/05/18 21:00 Triglycerides 104 mg/dL (<150) 09/05/18 21:00 Cholesterol 128 mg/dL (<200) 09/05/18 21:00 LDL Cholesterol Direct 84 mg/dL (75-193) 09/05/18 21:00 HDL Cholesterol 38 mg/dL (23-92) 09/05/18 21:00 TSH 4.80 uIU/ml (0.34-5.60) 09/05/18 21:00 Salicylates < 25.0 mg/L (30.0-100.0) L 09/05/18 21:00 Acetaminophen < 10.0 ug/mL (10.0-30.0) L 09/05/18 21:00 Ethyl Alcohol < 10 mg/dL (0-10) 09/05/18 21:00 RPR NONREACTIVE (NONREACTIVE) 09/05/18 21:00 - Physical Exam Vitals and I&O: Vital Signs Temp 98.4 F 09/11/18 05:46 Pulse 97 09/11/18 08:26 Resp 19 09/11/18 05:46 BP 111/70 09/11/18 08:26 Pulse Ox 95 09/11/18 05:46 Intake & Output 09/10/18 09/11/18 09/11/18 18:59 06:59 18:59 Intake Total 1800 240 Balance 1800 240 Intake: Oral 1800 240 Other: # Voids 4 2 # Bowel Movements 2 Active Medications: Current Medications Acetaminophen (Tylenol) 650 mg PO Q4HR PRN PRN Reason: Mild Pain / Temp above 100 Stop: 11/04/18 22:37 Albuterol Sulfate (Albuterol 2.5mg/3ml Neb Ud) 2.5 mg HHN Q6H PRN PRN Reason: Shortness of Breath Stop: 11/05/18 08:32 Aspirin (Aspirin Chewable) 81 mg PO DAILY [facility] Stop: 11/05/18 08:59 Last Admin: 09/11/18 08:26 Dose: 81 mg Benztropine Mesylate (Cogentin) 1 mg PO BID NEL Stop: 11/05/18 08:59 Last Admin: 09/11/18 08:26 Dose: 1 mg Diphenhydramine HCl (Benadryl) 50 mg PO HS PRN PRN Reason: SLEEP Stop: 11/05/18 08:33 Divalproex Sodium (Depakote Dr) 500 mg PO DAILY [facility]; Protocol Stop: 11/05/18 08:59 Last Admin: 09/11/18 08:26 Dose: 500 mg Haloperidol (Haldol) 5 mg PO BID NEL; Protocol Stop: 11/05/18 16:59 Last Admin: 09/11/18 08:26 Dose: 5 mg Levothyroxine Sodium (Synthroid) 0.05 mg PO QDAC NEL Stop: 11/05/18 07:29 Last Admin: 09/11/18 06:37 Dose: 0.05 mg Lisinopril (Zestril) 5 mg PO DAILY NEL Stop: 11/05/18 08:59 Last Admin: 09/11/18 08:26 Dose: 5 mg Lorazepam (Ativan) 0.5 mg PO Q4HR PRN; Protocol PRN Reason: Anxiety Stop: 10/05/18 22:37 Last Admin: 09/09/18 20:06 Dose: 0.5 mg Metformin HCl (Glucophage) 500 mg PO BID NEL Stop: 11/05/18 08:59 Last Admin: 09/11/18 08:27 Dose: 500 mg Simvastatin (Zocor) 10 mg PO HS NEL Stop: 11/05/18 20:59 Last Admin: 09/10/18 21:04 Dose: 10 mg Zolpidem Tartrate (Ambien) 5 mg PO HS PRN PRN Reason: Insomnia Stop: 11/04/18 22:37 Last Admin: 09/09/18 22:09 Dose: 5 mg General: demented HEENT: NC/AT Neck: Supple, No JVD Lungs: CTAB Cardiovascular: RRR, Normal S1, Normal S2 Abdomen: soft Extremities: clear Neurological: no change Internal Medicine Assmt/Plan - Assessment Assessment: psychotic/paranoia agitation htn dyslipidemia dementia - Plan Plan: cpm Nutritional Asmnt/Malnutr-PDOC - Dietary Evaluation Malnutrition Findings (Please click <Entered> for more info): Nutritional Asmnt/Malnutrition Start: 09/08/18 10: 04 Text: Status: Complete Freq: Protocol: Document 09/08/18 10:04 QING (Rec: 09/08/18 10:15 QING HAY- [email or web address]) Nutritional Asmnt/Malnutrition Patient General Information Nutritional Screening Moderate Risk Diagnosis Psychosis Pertinent Medical Hx/Surgical Hx HTN, dyslipidemia, dementia Subjective Information Patient was admitted from a skilled nursing. Patient in bed at time of visit. Per nursing, patient is tolerating diet eating 75-100% of meals. Current Diet Order/ Nutrition Support 60 gm CCHO Patient / S.O Not Indicated Pertinent Medications synthroid, Metformin Pertinent Labs WNL Nutritional Hx/Data Height 6 ft Height (Calculated Centimeters) 182.9 Current Weight (lbs) 166 lb Weight (Calculated Kilograms) 75.3 Weight (Calculated Grams) 66292.3 [place] Body Weight 178 % [place] Body Weight 93 Body Mass Index (BMI) 22.5 Recent Weight Change No Weight Status Approriate GI Symptoms GI Symptoms None Last BM none noted in EMR since admission Difficult in: None Food Allergies No Cultural/Ethnic/Yazidi Belief none indicated Usual diet at home unknown Skin Integrity/Comment: Alen 21, intact Current %PO Fair (50-74%) Estimated Nutritional Goals BEE in Kcals: Using Current wt Calories/Kcals/Kg 25-30 kcal/kg using 75.4 kg Kcals Calculated 4805-9011 kcal/day Protein: Using Current wt Protein g/k.8-1 gm/kg Protein Calculated ~60-75 gm/day Fluid: ml 7004-3260 ml/day Nutritional Problem 1. Problem Problem No nutrition diagnosis at this time Intervention/Recommendation Comments Continue 60 gm CCHO diet as tolerated by patient. Expected Outcomes/Goals Expected Outcomes/Goals Oral intake >75% of meals, weight stable, nutrition related labs WNL
--- NOTE | 2018-09-11 14:29 | Progress Notes ---
DATE: 09/11/2018 SUBJECTIVE: Staff was spoken to. The patient is interviewed. Mood is noted to be less irritable, paranoid delusions are noted. The patient denies any command hallucinations today. Personal hygiene continues to be very poor. Patient refuses to change clothes. ASSESSMENT: The patient is still psychotic. PLAN: To continue the patient with the supportive therapy and followup. customer marketing manager is going to be looking into possible discharge of the patient tomorrow if the patient continues to this . JOB# [id number]
--- NOTE | 2018-09-12 00:14 | Progress Notes ---
DATE: 09/10/2018 SUBJECTIVE: The patient is seen and interviewed. The patient presents as irritable and guarded. The patient continues to exhibit paranoid ideation. The staff indicates that the patient is attending milieu therapy and group therapy on a very limited basis. The patient presents as frustrated. OBJECTIVE: Mood irritable. Affect constricted. Thought process indicates paranoid ideation and psychotic process. The patient did not answer the questions about auditory or visual hallucinations. The patient's behavior has been intermittently noncompliant with his care and treatment. ASSESSMENT AND PLAN: The patient appears to still be psychotic. We will continue to provide reality orientation, differentiation and integration. Remotivation was provided for the patient to become compliant and stay compliant with all aspects of his care and treatment. We provided coping strategies and mechanisms for chronic severe mental illness. We will follow up in 2 to 3 days to continue the present treatment. JOB# [id number] SHARATH
[2018-09-12] MEDS: Levothyroxine 0.05 Mg Tab PO SCH (06:44)
[2018-09-12] MEDS: Benztropine 1 MG TAB PO SCH ×2 (09:38→18:04)
[2018-09-12] MEDS: Aspirin 81mg Chewable Tab PO SCH (09:38)
--- NOTE | 2018-09-12 10:04 | Progress Notes ---
DATE: 09/12/2018 SUBJECTIVE: Staff was spoken to. The patient is interviewed. Mood is noted to be less irritable. Affect is appropriate. The patient is not suicidal or homicidal. Insight and judgment are fair. Impulse control is also noted to be fair. No side effects to the medications are noted. The patient has been able to participate in the groups. Personal hygiene continues to be still poor, but the patient is not presenting as a threat to self or others. ASSESSMENT: The patient is stabilizing. PLAN: To discharge the patient today for followup on outpatient basis. JOB# [id number]
--- NOTE | 2018-09-13 06:35 | Progress Notes ---
DATE: 09/12/2018 SUBJECTIVE: The patient is seen and interviewed. Case is discussed with staff. The patient presents as less irritable this visit. The patient denied any suicidal ideation. Staff reports the patient's impulse control is improving. Staff also report that the patient is participating in the group and milieu therapy. However, the patient's personal hygiene continues to be poor. OBJECTIVE: Mood is stabilizing. Affect: appropriate. Thought process shows to be more goal oriented. The patient denied any suicidal ideation. The patient denied any hallucinations or delusions. The patient's behavior shows increased compliance with care. ASSESSMENT AND PLAN: The patient appears to be stabilizing in both mood and behavior. We provided positive reinforcement for the patient to stay compliant with all aspects of his care and treatment. We have provided coping strategies for chronic severe mental illness as well as for phase of life issues. We provided affirmation and encouragement for the patient to continue to demonstrate emotional and self-regulation. We encouraged the patient and provided remotivation for the patient to become more responsible for his ADLs including his personal hygiene. We will follow up in 2-3 days to continue present treatment if the patient is still admitted. Prognosis is fair. JOB# [id number] SHARATH
== END 2018-09-12 19:25 | DRG 885 ==
LOC: ER 20:50 → GERO2 21:00
PROVIDERS: ADMIT Psychiatry & Neurology Psychiatry; ATTEND Psychiatry & Neurology Psychiatry
DX: F20.0 Paranoid schizophrenia (principal); I10 Essential (primary) hypertension; E78.5 Hyperlipidemia, unspecified; F03.90 Unspecified dementia, unspecified severity, without behavioral disturbance, psychotic disturbance, mood disturbance, and anxiety; E11.9 Type 2 diabetes mellitus without complications; E03.9 Hypothyroidism, unspecified; Z82.49 Family history of ischemic heart disease and other diseases of the circulatory system
CPT/HCPCS: 36415-UA; 80053-TC; 80061-TC; 80320-TC; 80329-TC; 83036-90; 84443-TC; 84484-TC; 85025-TC; 86592-TC; 90899; 93005; G0410; Z7610